=== PATIENT | female | born 1975 | race Caucasian/White ===

== ENCOUNTER → 2017-10-17 16:00 | Outpatient (REF) | payer OTHER, SELFPAY ==
--- NOTE | 2017-10-17 15:00 | PAPFT_PTH ---
PATIENT: Ana Brown LOC: [facility] U#:[id number] AGE/SX: 49/F ROOM: RE10/17/[address]: MAGED Womack : 1975 BED: DIS: SPEC #: [id number] RECD: 10/17/17 18:07 STATUS: ALTHEA CHOI #: [id number] BUSHRA: 10/17/17 15:[address]: Claritza Blackwell DEPT: [facility] [place] Cytology RECD BY: Cecelia Muhammad ENTERED: 10/17/17 18:07 SP TYPE: PAPFT OTHR DR: Korina Jaeger APRN Tissues: 1 - CX/ENDOCX FOR PAP SMEARS Procedures: PAP THIN PREP/[facility] Screening Comments: [id number]
== END ==
LOC: LBN 16:00
PROVIDERS: Visit Provider Nurse Practitioner Family
DX: Z12.4 Encounter for screening for malignant neoplasm of cervix (principal)
CPT/HCPCS: 88142

== ENCOUNTER → 2017-10-23 02:05 | Outpatient (CLI) | payer OTHER, SELFPAY | DX: E03.9 Hypothyroidism, unspecified (principal) | CPT/HCPCS: 36415; 84443 ==

== ENCOUNTER → 2017-10-29 01:54 | Outpatient (CLI) | payer OTHER, SELFPAY ==
--- NOTE | 2017-10-29 12:36 | DI.REPORT_ITS ---
SYMPTOM/DIAGNOSIS: PERSIST LLQ PAIN, S/P HYST, R10.32 PELVIC ULTRASOUND: Comparison is made with CT of the abdomen and pelvis dated 03/21/15. Transabdominal and transvaginal exams were performed. The patient is status post hysterectomy. A vaginal cuff versus cervical stump is seen. No mass is identified. The right ovary is unremarkable. There are two small cysts on the left ovary measuring 9 mm. in size. There is a trace amount of free fluid adjacent to the left ovary. The kidneys are unremarkable. IMPRESSION: Status post hysterectomy. Two small left ovarian cysts.
== END ==
PROVIDERS: Visit Provider Nurse Practitioner Family
DX: R10.32 Left lower quadrant pain (principal); N83.292 Other ovarian cyst, left side; Z90.710 Acquired absence of both cervix and uterus
CPT/HCPCS: 76830; 76856

== ENCOUNTER 2018-02-20 01:31 | Outpatient (CLI) | payer OTHER, SELFPAY ==
--- NOTE | 2018-02-20 11:26 | DI.US_ITS ---
SYMPTOMS/DIAGNOSIS: INGUINAL PAIN, S/P HYSTERECTOMY AND LYMPHADENOPATHY FOR CERVICAL CA, ? HERNIA/LYMPHADENOPATHY/SCAR TISSUE, R10.32, G89.29 LEFT INGUINAL ULTRASOUND: Routine examination was performed. There is no evidence of a left inguinal hernia sonographically. There are lymph nodes seen in the left inguinal region. They are ovoid with a hypoechoic periphery and a vascular hyperechoic central region consistent with benign lymph nodes sonographically. The largest measures 4.6 x 0.9 x 1.7 cm. IMPRESSION: Negative left inguinal ultrasound. No sonographic evidence of a hernia.
== END 2018-02-20 01:51 ==
PROVIDERS: Visit Provider Surgery
DX: R10.32 Left lower quadrant pain (principal); R59.0 Localized enlarged lymph nodes; Z98.890 Other specified postprocedural states
CPT/HCPCS: 76857

== ENCOUNTER 2018-03-18 08:57 | Day surgery (SDC) | payer OTHER, SELFPAY ==
[2018-03-18 09:09] VITALS: BP 123/65; PULSE 62; RESP 16; TEMP 36.6; O2SAT 99
--- NOTE | 2018-03-18 09:13 | W.PM.HP.N ---
Assessment and Plan (1) Adenocarcinoma in situ of cervix: Current visit: No Status: Acute (2) Lymphadenopathy, inguinal: Current visit: Yes Status: Acute A\\ left sided inguinal lymphadenopathy. Benign on US criteria. Has a hx of cervical cancer and is s/p hysterectomy and oopherectomy as well as a lymph node excision Discussed options of waiting and repeating the US in 6 months vs doing an open biopsy. Patient would like to proceed with biopsy P\\ Open Left inguinal lymph node biopsy under local Risks, benefits and complications were reviewed with the patient. Complications include but are not limited to bleeding, pain, infection, wound dehisence. Questions were entertained and answered to their satisfaction and they wished to proceed. No guarantees were given or implied. History of Present Illness Narrative: Mrs. Brown is a pleasant 42 year old female who in 2004 underwent a hysterectomy. She was found to have invasive cervical cancer and underwent another surgery 1 week later for lymphadenectomy. She also had radiation and chemotherapy. Shortly after that she started having some dull pain in the inguinal area. She describes it as dull. It is more pronounced at night. It is located mostly on her anterior thigh. Her last CT scan was in 2016 and was unremarkable. She recently had another vaginal US which was also unremarkable. She also complains of painful sex which is new and some spotting after sex. No weight loss. No rectal bleeding. No changes in bowel habits. PCP thought he felt a hernia. US revealed some enlarged but benign appearing lymph nodes. 6 months follow up was recomended. Patient was anxious about not knowing exactly why the lymph nodes were enlarged. Given her PMHx I felt it was reasonable to do a biopsy. Review of Systems Constitutional Denies fever(s) Cardiovascular Denies chest pain, Denies rapid heart rate, Denies irregular heart rhythm, Denies dyspnea and Denies dyspnea on exertion Respiratory Denies cough, Denies dyspnea and Denies dyspnea on exertion [facility] Medical History Insomnia (Acute 03/24/15) Hypothyroidism (Acute) Hyperlipidemia (Acute) Heart murmur (Acute) Headache (Acute) Generalized anxiety disorder (Acute 03/24/15) Adenocarcinoma in situ of cervix (Acute) Surgical History Vaginal hysterectomy (~2004) Family History Mother Essential hypertension Hyperlipidemia Stroke Father Diabetes Heart disease Neoplasm Sister Essential hypertension Neoplasm Brother Essential hypertension Hyperlipidemia Grandfather Essential hypertension Grandfather No problems noted. Grandmother No problems noted. Grandmother Diabetes Neoplasm Son No problems noted. Daughter No problems noted. Daughter Asthma Social History household members: family number of children: 3 Smoking/Tobacco Use Status: Never alcohol intake: current alcohol intake frequency: holidays/special occasions only substance use type: does not use Meds Home Medications Medication Instructions Recorded Confirmed Type levothyroxine 75 mcg PO DAILY #90 tab-cap 10/16/17 03/18/18 Rx sertraline 50 mg PO DAILY #90 tab-cap 11/07/17 03/18/18 Rx Allergies Allergy/AdvReac Type Severity Reaction Status Date / Time No Known Allergies Allergy Unverified 03/18/18 09:07 Exam Resp Effort & Inspection: normal respiratory effort Auscultation: clear to auscultation bilaterally Cardio Rate: regular rate Rhythm: regular rhythm Heart Sounds: no gallops, no murmurs and no rubs Extrem Other: Left inguinal area with palpable lymphadenopathy
[2018-03-18] MEDS: Lactated Ringers 1,000 ML 80 ML IV (09:31)
[2018-03-18] MEDS: Lidocaine 2% Multi-Dose 50 ML VIAL (11:08)
--- NOTE | 2018-03-18 11:08 | LYM_PTH ---
PATIENT: Ana Brown LOC: [facility] U#:[id number] AGE/SX: 42/F ROOM: RE03/18/[address]: Radha Castillo MD : 1975 BED: DIS: 03/18/2018 SPEC #: [id number] RECD: 03/18/18 12:55 STATUS: ALTHEA REQ #: [id number] BUSHRA: 03/18/18 11:[address]: Radha Castillo DEPT: Surgical Specimen RECD BY: Cecelia Muhammad ENTERED: 03/18/18 12:56 SP TYPE: LYM OTHR DR: Korina Jaeger APRN Tissues: 1 - LYMPH NODE BIOPSY Procedures: GROSS AND MICRO LEVEL 4 IMMUNOPEROXIDASE STAIN SPECIAL STAIN 1 Comments: [id number]
--- NOTE | 2018-03-18 11:22 | W.PM.OP ---
Date of service: 03/18/18 Time of Service: 11:22 Operative Note DATE OF PROCEDURE: 03/18/18 PRE-OP DIAGNOSIS: Left inguinal lymphadenopathy/hx of cervical CA POST-OP DIAGNOSIS: same PROCEDURE: Excisional bx of left inguinal lymph node SURGEON: Radha Castillo ANESTHESIA: regional (2% Lidocainemixed with .5% Marcaine with epi-18 cc) ESTIMATED BLOOD LOSS: 3 PATHOLOGY: other (lymph node) COMPLICATIONS: None Patient was transported to: same day Patient's condition: stable Indications: Mrs. Brown is a pleasant 42-year-old female with a past history of cervical cancer who noted swelling in her left inguinal area. It is tender. She thought it was a hernia at first. Ultrasound showed enlarged lymph nodes. There was benign appearance of the lymph nodes on ultrasound criteria. Repeat ultrasound in 6 months versus excisional biopsy was reviewed with the patient and she wanted to proceed with excisional biopsy due to her past history of cervical cancer. Risks, benefits, complications were reviewed with her and she wished to proceed. No guarantees were given or implied Findings: Matted and enlarged lymph nodes in the left inguinal area Procedure Description: After informed consent was obtained patient was taken to the procedure room placed in a supine position blood pressure was taken and a timeout was done. The patient's name, date of , procedure type and site, allergies to medications, and antibiotic given were all reviewed. Next the groin area was clipped and then prepped and draped in a sterile surgical fashion. The 2% lidocaine and Marcaine with epinephrine mixture was then injected on the previously marked site. Once the area was nice and numb an incision was made with a 15 blade. The dissection was taken down with cautery through the subcutaneous tissue until I was able to palpate the matted lymph nodes. The lymph node was dissected using cautery blunt dissection as well as sharp dissection. Once removed it was placed into formalin and sent to pathology. The wound was inspected for any bleeding none was identified. The subcutaneous tissue was then re-approximated using 3-0 Vicryl interrupted sutures. The dermis was closed using 4-0 Vicryl continuous suture. Skin affix was then applied. Sponge, instrument and needle counts were correct. Another blood pressure was done and the patient was then brought back to same day surgery in stable condition. She tolerated the procedure well.
--- NOTE | 2018-03-18 11:29 | W.PM.DSUDISC ---
Discharge Plan Disposition Patient Disposition: HOME Condition: Good Discharge Details Reason For Visit: lymph node bx Attending Provider: Radha Castillo Primary Care Provider: Korina Jaeger Home Meds and New Rx's Prescriptions: Continued levothyroxine 75 MCG tablet 75 mcg PO DAILY Qty: 90 RF: 4 sertraline 50 MG tablet 50 mg PO DAILY Qty: 90 RF: 2 Discharge Instructions Additional Instructions: Activity at Home after surgery: 1. Make sure you walk outside at least 4 times per day 2. You should be able to climb a flight of stairs 3. No driving while in pain or taking pain medications 4. No strenuous activity or heavy lifting for 1 week Diet, Nutrition, & wound healing: Eat a regular diet Pain Medications: 1. Alternate Tylenol 1000 mg and Ibuprofen 600 mg every 3 hours For Constipation: 1. Take Milk of Magnesia or MiraLax as needed for constipation Other: 1. You may shower daily. Do not scrub the incisions 2. Do not soak the incisions for 1 week 3. You may alternate ice and heat as needed for pain and swelling Wound Care: 1. Keep the incisions clean and dry Other Services that may have been ordered: None Please call our office if you develop: 1. Fevers >101.5 2. Nausea or Vomiting 3. Worsening pain 4. Redness and thick discharge from the wounds If after hours please call the Hospital at and ask to speak to the on-call surgeon Activity:: Activity as Tolerated Diet:: As Tolerated DS: Diagnosis Discharge Diagnosis (1) Adenocarcinoma in situ of cervix: Status: Acute (2) Lymphadenopathy, inguinal: Status: Acute
== END 2018-03-18 11:50 | disposition home or self-care (01) ==
PROVIDERS: Visit Provider Surgery
PROC: (CPT 38500; principal; 2018-03-18 11:00)
DX: R59.0 Localized enlarged lymph nodes (principal); Z85.41 Personal history of malignant neoplasm of cervix uteri
CPT/HCPCS: 38500; 88305; NC; 88312; 88361; J0690

== ENCOUNTER 2018-06-27 01:21 | Outpatient (CLI) | payer OTHER, SELFPAY ==
[2018-06-27 10:44] LABS: ALT 26 U/L (12-78); AST 17 U/L (15-37); Albumin 3.8 g/dL (3.4-5.0); Alkaline Phosphatase 73 U/L (46-116); BUN 14 mg/dL (7-18); Bilirubin, Total 0.3 mg/dL (0.2-1.0); CREATININE 0.73 mg/dL (0.55-1.02); Calcium 8.7 mg/dL (8.5-10.1); Chloride 102 mmol/L (98-107); Glucose 94 mg/dL (70-100); Sodium 139 mmol/L (136-145); TSH (W/Ref FT4) 0.69 uIU/mL (0.358-3.74); Total Protein 7.4 g/dL (6.4-8.2)
== END 2018-06-27 01:41 ==
DX: Z00.00 Encounter for general adult medical examination without abnormal findings (principal); E03.9 Hypothyroidism, unspecified; E01.1 Iodine-deficiency related multinodular (endemic) goiter; F41.1 Generalized anxiety disorder; G47.00 Insomnia, unspecified
CPT/HCPCS: 36415; 80053; 84443

== ENCOUNTER 2018-10-16 16:00 | Outpatient (REF) | payer OTHER, SELFPAY ==
--- NOTE | 2018-10-16 15:20 | PAPFT_PTH ---
PATIENT: Ana Brown LOC: [facility] U#:[id number] AGE/SX: 43/F ROOM: RE10/16/[address]: MAGED Womack : 1975 BED: DIS: 10/16/2018 SPEC #: [id number] RECD: 10/16/18 17:33 STATUS: ALTHEA RERuddy #: [id number] BUSHRA: 10/16/18 15:[address]: Claritza Blackwell DEPT: [facility] Cytology RECD BY: Cecelia Muhammad ENTERED: 10/16/18 17:34 SP TYPE: PAPFT BEATRIZ DR: Korina Jaeger APRN Tissues: 1 - CX/ENDOCX FOR PAP SMEARS Procedures: PAP THIN PREP/[facility] Screening Comments: [id number]
== END 2018-10-16 16:20 ==
LOC: LBN 16:00
PROVIDERS: Visit Provider Nurse Practitioner Family
DX: Z12.4 Encounter for screening for malignant neoplasm of cervix (principal)
CPT/HCPCS: 88142

== ENCOUNTER 2018-10-30 01:09 | Outpatient (CLI) | payer OTHER, SELFPAY ==
--- NOTE | 2018-10-30 12:00 | DI.MAMMO_ITS ---
SYMPTOMS/DIAGNOSIS: SCREENING, Z12.31 MAMMOGRAMS: Mammograms were interpreted according to the usual protocol including computer analysis with CAD system, tomosynthesis and C view imaging. Comparison is with the prior examinations. No suspicious masses or microcalcifications are seen. There is no definite evidence of malignancy. IMPRESSION: Negative mammogram. Routine screening is recommended. Category 1, breast density C. MQSA ASSESSMENT OF FINDINGS: Negative. Category 1. Patient will receive a letter notifying them of these results. Bi-RADS category C. The breasts are heterogeneously dense, which may obscure small masses.
== END 2018-10-30 01:29 ==
PROVIDERS: Visit Provider Nurse Practitioner Family
DX: Z12.31 Encounter for screening mammogram for malignant neoplasm of breast (principal)
CPT/HCPCS: 77063; 77067

== ENCOUNTER 2019-08-19 01:21 | Outpatient (CLI) | payer OTHER, SELFPAY ==
[2019-08-19 08:37] LABS: ALT 86 U/L (14-59); AST 61 U/L (15-37); Albumin 3.9 g/dL (3.4-5.0); Alkaline Phosphatase 83 U/L (46-116); Anion Gap 7.1 mmol/L (3-11); BUN 15 mg/dL (7-18); Bilirubin, Total 0.4 mg/dL (0.2-1.0); CO2 28.9 mmol/L (21.0-32.0); CREATININE 0.83 mg/dL (0.55-1.02); Calcium 8.4 mg/dL (8.5-10.1); Chloride 104 mmol/L (98-107); Glucose 105 mg/dL (74-106); Potassium 4.2 mmol/L (3.5-5.1); Sodium 140 mmol/L (136-145); Total Protein 7.4 g/dL (6.4-8.2)
== END 2019-08-19 01:41 ==
DX: E03.9 Hypothyroidism, unspecified (principal); F41.1 Generalized anxiety disorder; R59.0 Localized enlarged lymph nodes; Z00.00 Encounter for general adult medical examination without abnormal findings; G47.00 Insomnia, unspecified
CPT/HCPCS: 36415; 80053; 84443

== ENCOUNTER 2019-10-05 01:54 | Outpatient (CLI) | payer OTHER, SELFPAY ==
[2019-10-05 10:47] LABS: ALT 22 U/L (14-59); AST 18 U/L (15-37); Alkaline Phosphatase 83 U/L (46-116); Anion Gap 10.8 mmol/L (3-11); BUN 13 mg/dL (7-18); Bilirubin, Total 0.5 mg/dL (0.2-1.0); CO2 27.2 mmol/L (21.0-32.0); CREATININE 0.83 mg/dL (0.55-1.02); Calcium 9.1 mg/dL (8.5-10.1); Calculated LDL 169 mg/dL (<100); Chloride 103 mmol/L (98-107); Cholesterol 261 mg/dL (<200); Glucose 100 mg/dL (74-106); HDL Cholesterol 63 mg/dL (40-60); Potassium 4.1 mmol/L (3.5-5.1); Sodium 141 mmol/L (136-145); TSH (W/Ref FT4) 0.59 uIU/mL (0.36-3.74); Total Protein 7.4 g/dL (6.4-8.2); Triglyceride 145 mg/dL (<150)
[2019-10-05 10:56] LABS: Bilirubin, Direct 0.11 mg/dL (0.00-0.20)
[2019-10-06 17:16] LABS: Hepatitis C Ab w Rflx HCV PCR Negative (Negative)
== END 2019-10-05 02:14 ==
DX: E03.9 Hypothyroidism, unspecified (principal); E78.5 Hyperlipidemia, unspecified; F41.1 Generalized anxiety disorder; G47.00 Insomnia, unspecified; Z00.00 Encounter for general adult medical examination without abnormal findings; R94.5 Abnormal results of liver function studies; I10 Essential (primary) hypertension
CPT/HCPCS: 36415; 80053; 80061; 80076; 86803; 84443

== ENCOUNTER → 2019-10-19 13:46 | Outpatient (REF) | payer OTHER, SELFPAY ==
--- NOTE | 2019-10-19 13:40 | PAPFT_PTH ---
PATIENT: Ana Brown LOC: [facility] U#:[id number] AGE/SX: 49/F ROOM: RE10/19/[address]: MAGED Womack : 1975 BED: DIS: SPEC #: [id number] RECD: 10/19/19 18:28 STATUS: ALTHEA REQ #: [id number] BUSHRA: 10/19/19 13:[address]: Claritza Blackwell [facility] Cytology RECD BY: Cecelia Muhammad ENTERED: 10/19/19 18:28 SP TYPE: PAPFT OTHR DR: Kroina Jaeger APRN Tissues: 1 - CX/ENDOCX FOR PAP SMEARS Procedures: PAP THIN PREP/[facility] Screening Comments: [id number] (UNSATISFACTORY FOR EVALUATION)
== END ==
LOC: LBN 13:46
PROVIDERS: Visit Provider Nurse Practitioner Family
DX: Z12.4 Encounter for screening for malignant neoplasm of cervix (principal); R87.615 Unsatisfactory cytologic smear of cervix
CPT/HCPCS: 88142

== ENCOUNTER 2019-11-10 15:13 | Outpatient (REF) | payer OTHER, SELFPAY ==
--- NOTE | 2019-11-10 14:30 | PAPFT_PTH ---
PATIENT: Ana Brown LOC: [facility] U#:[id number] AGE/SX: 44/F ROOM: RE11/10/[address]: MAGED Womack : 1975 BED: DIS: 11/10/2019 SPEC #: [id number] RECD: 11/11/19 12:53 STATUS: ALTHEA RERuddy #: [id number] BUSHRA: 11/10/19 14:[address]: Claritza Blackwell DEPT: [facility] Cytology RECD BY: Irineo Chandra ENTERED: 11/11/19 12:54 SP TYPE: PAPFT OTHR DR: Korina Jaeger APRN Tissues: 1 - CX/ENDOCX FOR PAP SMEARS Procedures: PAP THIN PREP/[facility] Screening HPV DNA PROBE Comments: [id number]
== END 2019-11-10 15:33 ==
LOC: LBN 15:13
PROVIDERS: Visit Provider Nurse Practitioner Family
DX: Z12.4 Encounter for screening for malignant neoplasm of cervix (principal); Z11.51 Encounter for screening for human papillomavirus (HPV)
CPT/HCPCS: 88142; 87624

== ENCOUNTER 2020-01-27 01:54 | Outpatient (CLI) | payer OTHER, SELFPAY ==
[2020-01-27 09:50] LABS: TSH (W/Ref FT4) 0.64 uIU/mL (0.36-3.74)
== END 2020-01-27 02:14 ==
DX: E03.9 Hypothyroidism, unspecified (principal); G47.00 Insomnia, unspecified
CPT/HCPCS: 36415; 84443

== ENCOUNTER 2020-02-15 13:16 | Outpatient (CLI) | payer OTHER, SELFPAY ==
[2020-02-17 09:57] LABS: COVID-19 RT-PCR Result NEGATIVE (Negative)
== END 2020-02-15 13:36 ==
DX: Z20.828 Contact with and (suspected) exposure to other viral communicable diseases (principal)
CPT/HCPCS: U0003

== ENCOUNTER 2020-05-06 01:02 | Outpatient (CLI) | payer BC, SELFPAY ==
[2020-05-06 12:45] LABS: TSH (W/Ref FT4) 1.78 uIU/mL (0.36-3.74)
== END 2020-05-06 01:03 | disposition home or self-care (01) ==
LOC: LOS 01:02
DX: E03.9 Hypothyroidism, unspecified (principal); G47.00 Insomnia, unspecified
CPT/HCPCS: 36415; 84443

== ENCOUNTER 2020-07-11 17:51 | Outpatient (REF) | payer BC, SELFPAY ==
[2020-07-11 21:01] LABS: Abs Immature Grans 0.02 10^3/uL (0.0-0.06); Absolute Basophil Count 0.02 10^3/uL (0.0-0.2); Absolute Eosinophil Count 0.08 10^3/uL (0.0-0.7); Absolute Lymphocyte Count 1.85 10^3/uL (1.2-3.4); Absolute Monocyte Count 0.51 10^3/uL (0.1-0.8); Absolute Neutrophil Count 3.77 10^3/uL (1.2-6.7); Basophils % 0.3; Eosinophils % 1.3; HCT 39.6 % (36.0-46.0); HGB 13.1 g/dL (11.2-15.7); Immature Grans % 0.3; Lymphocytes % 29.6; MCH 28.4 pg (27.0-33.0); MCHC 33.1 % (32.0-36.0); MCV 85.7 fL (80-95); MPV 10.4 fL (8.0-11.0); Monocytes % 8.2; Neutrophils % 60.3; Nucleated RBC 0 %; Platelet Count 275 10^3/uL (130-400); RBC 4.62 10^6/uL (3.93-5.22); RDW 12.7 % (11.7-14.6); RDW-SD 39.6 fL; WBC 6.25 10^3/uL (4.4-10.8)
[2020-07-11 21:20] LABS: ALT 23 U/L (14-59); Albumin 3.9 g/dL (3.4-5.0); Alkaline Phosphatase 81 U/L (46-116); Anion Gap 9.4 mmol/L (3-11); BUN 11 mg/dL (7-18); Bilirubin, Total 0.3 mg/dL (0.2-1.0); CO2 29.6 mmol/L (21.0-32.0); CREATININE 0.8 mg/dL (0.55-1.02); Calcium 9.3 mg/dL (8.5-10.1); Chloride 105 mmol/L (98-107); Glucose 113 mg/dL (74-106); Potassium 3.7 mmol/L (3.5-5.1); Sodium 144 mmol/L (136-145); Total Protein 7.4 g/dL (6.4-8.2)
[2020-07-11 21:38] LABS: AST 14 U/L (15-37)
[2020-07-15 21:05] LABS: Tissue Transglutaminase Ab IgA <1.2 U/mL; Tissue Transglutaminase Ab IgG 3.2 U/mL
== END 2020-07-11 17:52 | disposition home or self-care (01) ==
LOC: LBN 17:51
PROVIDERS: Visit Provider Family Medicine
DX: R10.9 Unspecified abdominal pain (principal)
CPT/HCPCS: 80053; 83516; 85025

== ENCOUNTER 2020-07-13 10:33 | Outpatient (REF) | payer BC, SELFPAY ==
[2020-07-14 15:33] LABS: Helicobacter pylori Ag, Feces Negative (Negative)
== END 2020-07-13 10:34 | disposition home or self-care (01) ==
LOC: LBN 10:33
PROVIDERS: Visit Provider Family Medicine
DX: R10.9 Unspecified abdominal pain (principal)
CPT/HCPCS: 87338

== ENCOUNTER 2020-10-13 03:46 | Outpatient (CLI) | payer BC, SELFPAY ==
[2020-10-13 12:15] LABS: Calculated LDL 185 mg/dL (<100); Cholesterol 274 mg/dL (<200); HDL Cholesterol 61 mg/dL (40-60); TSH (W/Ref FT4) 1.38 uIU/mL (0.36-3.74); Triglyceride 144 mg/dL (<150)
== END 2020-10-13 03:47 | disposition home or self-care (01) ==
DX: E78.5 Hyperlipidemia, unspecified (principal); E03.9 Hypothyroidism, unspecified
CPT/HCPCS: 36415; 80061; 84443

== ENCOUNTER 2020-10-21 11:15 | Outpatient (REF) | payer BC, SELFPAY ==
--- NOTE | 2020-10-21 10:30 | PAPFT_PTH ---
PATIENT: Ana Brown LOC: [facility] U#:[id number] AGE/SX: 45/F ROOM: RE10/21/[address]: MAGED Womack : 1975 BED: DIS: 10/21/2020 SPEC #: [id number] RECD: 10/21/20 13:08 STATUS: ALTHEA REQ #: [id number] BUSHRA: 10/21/20 10:[address]: Claritza Blackwell DEPT: [facility] Cytology RECD BY: Cecelia Muhammad ENTERED: 10/21/20 13:08 SP TYPE: PAPFT OTHR DR: Korina Jaeger APRN Tissues: 1 - CX/ENDOCX FOR PAP SMEARS Procedures: PAP THIN PREP/[facility] Screening HPV DNA PROBE Comments: [id number]
== END 2020-10-21 11:16 | disposition home or self-care (01) ==
LOC: LBN 11:15
PROVIDERS: Visit Provider Nurse Practitioner Family
DX: Z12.72 Encounter for screening for malignant neoplasm of vagina (principal); Z85.41 Personal history of malignant neoplasm of cervix uteri; Z11.51 Encounter for screening for human papillomavirus (HPV); Z90.710 Acquired absence of both cervix and uterus
CPT/HCPCS: 88142; 87624

== ENCOUNTER 2020-10-31 01:38 | Outpatient (CLI) | payer BC, SELFPAY ==
--- NOTE | 2020-10-31 09:00 | DI.MAMMO_ITS ---
Exam(s) MAMMO SCREENING EXAM: MAMMO SCREENING CLINICAL HISTORY: screening. TECHNIQUE: Bilateral full field digital CC and MLO mammographic images were obtained with 3D tomosyn thesis and utilizing computer aided detection (CAD). COMPARISON: Prior mammograms dating back to 2013, the most recent being October 2018. FINDINGS: Fibroglandular tissue pattern is moderately dense, this decreasing sensitivity mammogram for finding hidden underlying lesions. In the left breast on 3D imaging there is a suggestion of asymmetric density-nodule measuring 6 x 5 m illimeters located approximately 3.5 cm in from the nipple on the CC view. In the opposite-right breast there is a round noncalcified well-defined 3-4 millimeter nodule located posteriorly in the medial aspect of the breast approximately 7 cm in from the nipple, as best seen o n 3D cc images. No malignant-appearing microcalcification groups in these regions or elsewhere in either breast. No new architectural distortion or skin thickening-retraction. IMPRESSION: Bilateral nodules. Spot compression views both breasts recommended as well as bilateral breast ultra sound. BI-RADS Category 0 - Assessment Incomplete: Need additional imaging evaluation Breast Density - Category C - Heterogeneously dense Breast density Category C or D implies that the patient has dense breast tissue. Dense breast tissue can make it harder to find cancer on a mammogram. Dense breast tissue is also associated with an incr eased risk of breast cancer. This information about the result of the mammogram report was provided to the patient to raise their awareness. Use this report when you speak with the patient about their risks for breast cancer, which includes their family history. At that time, you may recommend additional screening tests (Ultrasoun d or MRI) as these tests may add significant information. A negative radiographic report should not delay biopsy if a dominant or clinically suspicious mass is present. Up to ten percent of cancers are not identified on mammography. A negative report may reinforce clinical impression. Adenosis and dense breasts may obscure an underlying neoplasm. False positive reports average 6 to 10%. Patient will receive a letter notifying them of these results.
== END 2020-10-31 01:58 ==
PROVIDERS: Visit Provider Nurse Practitioner Family
DX: Z12.31 Encounter for screening mammogram for malignant neoplasm of breast (principal); R92.8 Other abnormal and inconclusive findings on diagnostic imaging of breast; N63.10 Unspecified lump in the right breast, unspecified quadrant; N63.20 Unspecified lump in the left breast, unspecified quadrant; R92.2 Inconclusive mammogram
CPT/HCPCS: 77063; 77067

== ENCOUNTER 2020-11-23 01:50 | Outpatient (CLI) | payer BC, SELFPAY ==
--- NOTE | 2020-11-23 10:20 | DI.MAMMO_ITS ---
Exam(s) US BREAST RT LIMITED US BREAST LT LIMITED MG MAMMO SCREEN CALL BACK BI EXAM: MG MAMMO SCREEN CALL BACK BI bilateral breast limited ultrasound CLINICAL HISTORY: F/U MAMMO, ASYMMETRIC DENSITY NODULE LT, NODULE RT. TECHNIQUE: Craniocaudal and mediolateral oblique Full Field Digital Mammography views of the bilater al breast with Computer Aided Diagnosis followed by Tomosynthesis and bilateral breast ultrasound. COMPARISON: Priors available for comparison. FINDINGS: Mammography/Tomosynthesis: Masses/Architectural Distortion: Additional views of the left breast confirm a well-circumscribed 7 m m nodule at the 12 o'clock position of the left breast approximately 3 cm from the nipple. Additiona l views of the right breast confirm a 3-4 mm nodule in the medial right breast approximately 7 cm fro m the nipple. Microcalcifictions: No suspicious pleomorphic-type are seen. Skin Thickening/Nipple Retraction: None. Bilateral limited breast US: Echotexture: Normal appearance of the glandular tissue. Shadowing: No suspicious foci. Cyst: In the left breast, there is a 0.7 cm simple cyst at the 12 o'clock position which would appear to correspond to the mammographic abnormality. In the right breast, several simple cysts are presen t in the medial half of the breast. There are multiple cysts seen at the 3 o'clock position of the r ight breast 7 cm from the nipple. This would correspond to the mammographic abnormality. Solid lesions: None seen. Ductal dilation: None. IMPRESSION: 1. No evidence of malignancy is noted. 2. Unless there is more urgent need, follow-up screening mammography is recommended, as per [place] [employer] guidelines. 3. The findings were discussed with the patient on the date of the examination. BI-RADS Category 2 - Benign Findings Breast Density - Category C - Heterogeneously dense Breast density Category C or D implies that the patient has dense breast tissue. Dense breast tissue can make it harder to find cancer on a mammogram. Dense breast tissue is also associated with an incr eased risk of breast cancer. This information about the result of the mammogram report was provided to the patient to raise their awareness. Use this report when you speak with the patient about their risks for breast cancer, which includes their family history. At that time, you may recommend additional screening tests (Ultrasoun d or MRI) as these tests may add significant information. A negative radiographic report should not delay biopsy if a dominant or clinically suspicious mass is present. Up to ten percent of cancers are not identified on mammography. A negative report may reinforce clinical impression. Adenosis and dense breasts may obscure an underlying neoplasm. False positive reports average 6 to 10%. Patient will receive a letter notifying them of these results.
== END 2020-11-23 02:10 ==
LOC: DI 01:50
PROVIDERS: Visit Provider Nurse Practitioner Family
DX: R92.8 Other abnormal and inconclusive findings on diagnostic imaging of breast (principal); N63.25 Unspecified lump in the left breast, overlapping quadrants; N63.15 Unspecified lump in the right breast, overlapping quadrants
CPT/HCPCS: 76642; 77063; 77067

== ENCOUNTER 2021-03-27 02:11 | Outpatient (CLI) | payer BC, SELFPAY ==
[2021-03-27 08:48] LABS: ALT 22 U/L (14-59); AST 19 U/L (15-37); Alkaline Phosphatase 75 U/L (46-116); Amylase 50 U/L (25-115); Anion Gap 10.1 mmol/L (3-11); BUN 14 mg/dL (7-18); Bilirubin, Total 0.4 mg/dL (0.2-1.0); CO2 25.9 mmol/L (21.0-32.0); CREATININE 0.8 mg/dL (0.55-1.02); Calcium 8.8 mg/dL (8.5-10.1); Chloride 103 mmol/L (98-107); Glucose 104 mg/dL (74-106); Lipase 237 U/L (73-393); Potassium 4.2 mmol/L (3.5-5.1); Sodium 139 mmol/L (136-145); TSH (W/Ref FT4) 1.69 uIU/mL (0.36-3.74); Total Protein 7.5 g/dL (6.4-8.2)
== END 2021-03-27 02:12 | disposition home or self-care (01) ==
LOC: LBO 02:11
DX: E03.9 Hypothyroidism, unspecified (principal); R10.812 Left upper quadrant abdominal tenderness; K21.9 Gastro-esophageal reflux disease without esophagitis
CPT/HCPCS: 36415; 80053; 83690; 82150; 84443

== ENCOUNTER 2021-04-12 01:44 | Outpatient (CLI) | payer BC, SELFPAY ==
--- NOTE | 2021-04-12 08:00 | DI.RAD_ITS ---
Exam(s) XR KNEE LT 4V AP,LAT,MICHAELA,PAT EXAM: XR KNEE LT 4V AP,LAT,MICHAELA,PAT CLINICAL HISTORY: Pain with kneeling, patella seems stuck,m25.562. TECHNIQUE: 2D digital imaging was performed. COMPARISON: No exams were available for comparison FINDINGS: BONES: No acute fracture is present. No bony destructive lesion is seen. No significant degenerative changes. JOINTS: The knee is normally aligned. No joint effusion is seen. The patellar view is suboptimal. The patellofemoral joint appears well maintained in the patella appears normally aligned. SOFT TISSUE: Normal. IMPRESSION: Normal radiographs of the left knee. DATA REPOSITORY: RADIATION DOSE DELIVERED:
== END 2021-04-12 02:04 ==
DX: M25.562 Pain in left knee (principal)
CPT/HCPCS: 73564

== ENCOUNTER 2021-10-03 03:50 | Outpatient (CLI) | payer BC, SELFPAY ==
[2021-10-03 12:58] LABS: Calculated LDL 161 mg/dL (<100); Cholesterol 241 mg/dL (<200); HDL Cholesterol 63 mg/dL (40-60); TSH 2.71 uIU/mL (0.36-3.74); Triglyceride 86 mg/dL (<150)
== END 2021-10-03 03:51 | disposition home or self-care (01) ==
LOC: LOS 03:50
DX: E78.5 Hyperlipidemia, unspecified (principal); E03.9 Hypothyroidism, unspecified
CPT/HCPCS: 36415; 80061; 84443

== ENCOUNTER 2021-10-11 22:06 | Outpatient (REF) | payer BC, SELFPAY ==
[2021-10-13 14:32] LABS: Varicella Zoster DNA Result Negative ((See Note))
== END 2021-10-11 22:07 | disposition home or self-care (01) ==
LOC: NCHCN 22:06
PROVIDERS: Visit Provider Nurse Practitioner Family
DX: H92.12 Otorrhea, left ear (principal); H93.8X2 Other specified disorders of left ear
CPT/HCPCS: 87798

== ENCOUNTER 2021-10-23 09:07 | Outpatient (REF) | payer BC, SELFPAY ==
--- NOTE | 2021-10-23 08:45 | PAPFT_PTH ---
PATIENT: Ana Brown LOC: [facility] U#:[id number] AGE/SX: 46/F ROOM: RE10/23/[address]: MAGED Womack : 1975 BED: DIS: 10/23/2021 SPEC #: [id number] RECD: 10/23/21 10:32 STATUS: ALTHEA REQ #: [id number] BUSHRA: 10/23/21 08:[address]: Claritza Blackwell DEPT: [facility] Cytology RECD BY: Alexia Sotelo ENTERED: 10/23/21 10:33 SP TYPE: PAPFT OTHR DR: Korina Jaeger APRN Tissues: 1 - CX/ENDOCX FOR PAP SMEARS Procedures: PAP THIN PREP/[facility] Screening HPV DNA PROBE Comments: [id number] (HPV 16 & 18/45)
== END 2021-10-23 09:08 | disposition home or self-care (01) ==
LOC: LBN 09:07
PROVIDERS: Visit Provider Nurse Practitioner Family
DX: Z12.72 Encounter for screening for malignant neoplasm of vagina (principal); Z11.51 Encounter for screening for human papillomavirus (HPV)
CPT/HCPCS: 88142; 87624

== ENCOUNTER → 2021-11-08 02:07 | Outpatient (CLI) | payer BC, SELFPAY ==
--- NOTE | 2021-11-08 07:30 | DI.MAMMO_ITS ---
Exam(s) MAMMO SCREENING EXAM: MAMMO SCREENING CLINICAL HISTORY: screening. TECHNIQUE: Bilateral full field digital CC and MLO mammographic images were obtained with 3D tomosyn thesis and utilizing computer aided detection (CAD). COMPARISON: Prior mammograms were reviewed, the most recent being October and November 2020. Ultras ound examinations of November 2020 were also reviewed.. FINDINGS: There are no new findings in the left breast. In the medial aspect of the opposite-right breast on the CC 3D cc imaging 1 of the nodular densities has slightly increased in size.. This is located posteromedially, 7 cm in from the nipple on the 3D cc image. There are no new spiculated masses nor malignant appearing microcalcification groups. There is no significant architectural distortion nor skin thickening-retraction. IMPRESSION: 1. No radiographic evidence of malignancy in left breast. 2. Right breast nodular density medially which has slightly increased in size from prior study. Nikc mmend repeat spot compression view and complete right breast ultrasound. BI-RADS Category 0 - Assessment Incomplete: Need additional imaging evaluation Breast Density - Category C - Heterogeneously dense Breast density Category C or D implies that the patient has dense breast tissue. Dense breast tissue can make it harder to find cancer on a mammogram. Dense breast tissue is also associated with an incr eased risk of breast cancer. This information about the result of the mammogram report was provided to the patient to raise their awareness. Use this report when you speak with the patient about their risks for breast cancer, which includes their family history. At that time, you may recommend additional screening tests (Ultrasoun d or MRI) as these tests may add significant information. A negative radiographic report should not delay biopsy if a dominant or clinically suspicious mass is present. Up to ten percent of cancers are not identified on mammography. A negative report may reinforce clinical impression. Adenosis and dense breasts may obscure an underlying neoplasm. False positive reports average 6 to 10%. Patient will receive a letter notifying them of these results.
== END ==
PROVIDERS: PCP Nurse Practitioner Family; Visit Provider Nurse Practitioner Family
DX: Z12.31 Encounter for screening mammogram for malignant neoplasm of breast (principal); R92.8 Other abnormal and inconclusive findings on diagnostic imaging of breast
CPT/HCPCS: 77063; 77067

== ENCOUNTER → 2021-11-14 01:13 | Outpatient (CLI) | payer BC, SELFPAY ==
--- NOTE | 2021-11-14 | DI.US_ITS ---
Exam(s) MG MAMMO SCREEN CALL BACK UNI US BREAST RT LIMITED EXAM: MG MAMMO SCREEN CALL BACK UNI and U/S breast RT limited CLINICAL HISTORY: F/U MAMMO, RT NODULAR DENSITIES INCREASED IN SIZE. TECHNIQUE: Craniocaudal and mediolateral oblique Full Field Digital Mammography views of the right b reast with Computer Aided Diagnosis followed by Tomosynthesis and right breast ultrasound. COMPARISON: Comparison is made with prior examinations. FINDINGS: Mammography/Tomosynthesis: Masses/Architectural Distortion: Additional views show small round nodule in the medial right breast. Microcalcifictions: No suspicious pleomorphic-type are seen. Skin Thickening/Nipple Retraction: None. Limited right breast US: Echotexture: Normal appearance of the glandular tissue. Shadowing: No suspicious foci. Cyst: Several clusters of cysts are seen in the right breast. 2 cysts are seen at the 1 o'clock posi tion of the right breast 4 cm from the nipple. The larger measures 0.8 cm in maximum diameter. Ther e are 2 simple cysts seen at the 3 o'clock position of the right breast 4-5 cm from the nipple. The largest measures 0.6 cm. There are 3 simple cysts seen at the 6 o'clock position of the right breast 4-5 cm from the nipple. The largest measures 0.8 cm. Solid lesions: None seen. Ductal dilation: None. IMPRESSION: 1. No evidence of malignancy is noted. 2. Unless there is more urgent need, follow-up screening mammography is recommended, as per [employer] [place] guidelines. 3. The findings were discussed with the patient on the date of the examination. BI-RADS Category 2 - Benign Findings Breast Density - Category C - Heterogeneously dense Breast density Category C or D implies that the patient has dense breast tissue. Dense breast tissue can make it harder to find cancer on a mammogram. Dense breast tissue is also associated with an incr eased risk of breast cancer. This information about the result of the mammogram report was provided to the patient to raise their awareness. Use this report when you speak with the patient about their risks for breast cancer, which includes their family history. At that time, you may recommend additional screening tests (Ultrasoun d or MRI) as these tests may add significant information. A negative radiographic report should not delay biopsy if a dominant or clinically suspicious mass is present. Up to ten percent of cancers are not identified on mammography. A negative report may reinforce clinical impression. Adenosis and dense breasts may obscure an underlying neoplasm. False positive reports average 6 to 10%. Patient will receive a letter notifying them of these results.
== END ==
PROVIDERS: PCP Nurse Practitioner Family; Visit Provider Nurse Practitioner Family
DX: Z12.31 Encounter for screening mammogram for malignant neoplasm of breast (principal); R92.8 Other abnormal and inconclusive findings on diagnostic imaging of breast
CPT/HCPCS: 76642; 77063; 77067

== ENCOUNTER → 2022-01-19 00:13 | Outpatient (CLI) | payer BC, SELFPAY ==
--- NOTE | 2022-01-19 08:30 | DI.CT_ITS ---
Exam(s) CT ABDOMEN PELVIS W EXAM: CT ABDOMEN PELVIS W CLINICAL HISTORY: chronic LUQ pain, R10.12, G89.29. TECHNIQUE: Imaging Protocol: Axial computed tomography images with coronal and sagittal reformatted images were created and reviewed CONTRAST MATERIAL: Intravenous: Omnipaque 100cc Oral: Yes. Oral contrast was administered for bowel opacification. COMPARISON: CT ABD PELVIS WITH CONTRAST from 03/21/2015 FINDINGS: VISUALIZED LUNG BASES: On the 1st uppermost image of this study there is a partially included right l vika nodule measuring 3 millimeters, noncalcified. No other nodules in the visualized lung bases and no infiltrates nor pleural effusions.. ABDOMEN: There is no ascites. LIVER: There are no focal hepatic lesions evident . GALLBLADDER/BILIARY: No obvious gallbladder pathology. CBD is not dilated. PANCREAS: No evidence of pancreatic mass nor dilatation of the pancreatic duct. SPLEEN: Spleen is not enlarged. No obvious intrasplenic lesions. Splenic and portal veins are paten t. ADRENALS: There are no significant adrenal masses. KIDNEYS:No cysts evident. No solid renal masses. No calculi nor hydronephrosis.. ABDOMINAL AORTA: Abdominal aorta is not enlarged. LYMPH NODES:There is no retroperitoneal nor paraaortic adenopathy. ABDOMINAL WALL: No evidence of significant anterior abdominal wall nor inguinal hernia. GI: There is no evidence of bowel obstruction, free air, nor abscess. PELVIS: GI: No evidence of appendicitis.No evidence of sigmoid diverticulitis. LYMPH NODES: There is no intrapelvic nor inguinal adenopathy. REPRODUCTIVE: The uterus is again noted to be surgically absent. There is a cyst in the left ovary a gain noted, presently measuring 2.2 by 1.5 cm, spine slightly smaller than previous. No cysts seen i n the opposite-right ovary on the present study. The previously present cyst in the right ovary has resolved. There is a small calcification in the right ovary, slightly larger than previous and prese ntly measuring 4 millimeters. There are no extraovarian adnexal masses and no free fluid in the depe ndent aspect of the pelvis. URINARY BLADDER: No calculi nor obvious masses evident OSSEOUS: Benign bone island in the left femoral head is unchanged from 2016. There are no lytic nor blastic osseous lesions. No fractures. No disc space narrowing nor listhesis. IMPRESSION: 1. Compared to the prior CT scan 2016 the uterus is again noted to be surgically absent. Previously present cysts in the right ovary are no longer seen. Cyst in left ovary is decreased in size with pr esent measurement as above. There are no extraovarian adnexal masses and no free fluid in the pelvis . No intrapelvic adenopathy. 2. No other findings in the abdomen pelvis. 3. Incidentally noted on the uppermost image of this abdominal study is a partially included small no dule in the right lung which measures 3 millimeters. RADIATION DOSE DELIVERED: 770.57mGy.cm Total DLP DATA REPOSITORY: All CT scans at this facility are submitted to the National Radiology Data Registry (NRDR) Dose Index Registry (DIR) with the [employer] (ACR). RADIATION OPTIMIZATION: All CT scans at this facility use at least one of these dose optimization te chniques: automated exposure control; mA and/or kV adjustment per patient size (includes targeted exa ms where dose is matched to clinical indication); or iterative reconstruction.
[2022-01-19] MEDS: Normal Saline - Diluent 50 ML VIAL IJ (15:56)
[2022-01-19] MEDS: Omnipaque 350 MG/ML 100 ML BTL IJ (15:56)
[2022-01-19] MEDS: Normal Saline Flush 10 ML SYR IVP (15:57)
== END ==
PROVIDERS: PCP Nurse Practitioner Family; Visit Provider Nurse Practitioner Family
DX: G89.29 Other chronic pain (principal); R10.12 Left upper quadrant pain
CPT/HCPCS: 74177; J3490

== ENCOUNTER 2022-07-31 02:46 | Outpatient (CLI) | payer BC, SELFPAY ==
[2022-07-31 09:16] LABS: Kit/Specimen SENT
== END 2022-07-31 02:47 | disposition home or self-care (01) ==
LOC: LBO 02:46
PROVIDERS: PCP Nurse Practitioner Family; Visit Provider Chiropractor Neurology
DX: R11.0 Nausea (principal); K30 Functional dyspepsia
CPT/HCPCS: 36415

== ENCOUNTER 2022-08-20 04:53 | Outpatient (CLI) | payer BC, SELFPAY ==
[2022-08-20 09:48] LABS: Kit/Specimen SENT
== END 2022-08-20 04:54 | disposition home or self-care (01) ==
LOC: LBO 04:53
PROVIDERS: PCP Nurse Practitioner Family; Visit Provider Chiropractor Neurology
DX: E03.9 Hypothyroidism, unspecified (principal)
CPT/HCPCS: 36415

== ENCOUNTER 2022-08-27 14:38 | Outpatient (REF) | payer BC, SELFPAY | END 2022-08-27 14:39 | disposition home or self-care (01) | LOC: LBN 14:38 | PROVIDERS: PCP Nurse Practitioner Family; Visit Provider Nurse Practitioner Family | DX: H92.01 Otalgia, right ear (principal) | CPT/HCPCS: 87077; 87070; 87186; 87205 ==

== ENCOUNTER 2022-10-26 02:29 | Outpatient (CLI) | payer BC, SELFPAY ==
[2022-10-26 11:05] LABS: Anion Gap 8.8 mmol/L (3-11); BUN 13 mg/dL (7-18); CO2 28.2 mmol/L (21.0-32.0); CREATININE 0.8 mg/dL (0.55-1.02); Calculated LDL 142 mg/dL (<100); Chloride 108 mmol/L (98-107); Cholesterol 222 mg/dL (<200); Estimated GFR 90.27 (mL/min/1.73m2); Glucose 105 mg/dL (74-106); HDL Cholesterol 61 mg/dL (40-60); Potassium 4.1 mmol/L (3.5-5.1); Sodium 145 mmol/L (136-145); TSH (W/Ref FT4) 0.63 uIU/mL (0.36-3.74); Triglyceride 97 mg/dL (<150)
[2022-10-26 11:12] LABS: Hemoglobin A1C 5.6 % (<5.7)
== END 2022-10-26 02:30 | disposition home or self-care (01) ==
LOC: LOS 02:29
PROVIDERS: PCP Nurse Practitioner Family; Visit Provider Nurse Practitioner Family
DX: Z00.00 Encounter for general adult medical examination without abnormal findings (principal); E78.5 Hyperlipidemia, unspecified; E03.9 Hypothyroidism, unspecified; F41.1 Generalized anxiety disorder; Z13.1 Encounter for screening for diabetes mellitus
CPT/HCPCS: 36415; 80048; 80061; 83036; 84443

== ENCOUNTER → 2022-11-14 02:57 | Outpatient (CLI) | payer BC, SELFPAY ==
--- NOTE | 2022-11-14 06:30 | DI.MAMMO_ITS ---
Exam(s) MAMMO SCREENING EXAM: MAMMO SCREENING CLINICAL HISTORY: screening,z12.39 TECHNIQUE: Mammograms were interpreted according to the usual protocol including computer analysis w [employer] CAD system, tomosynthesis and C-view imaging. COMPARISON: 2013 through 2021 FINDINGS: The breasts are composed of heterogeneously dense fibroglandular densities, Breast Density category C . No suspicious masses or suspicious microcalcifications are seen.. Previously noted area of nodularity in the medial right breast no longer seen. No skin thickening or abnormal axillary lymph nodes are seen. There has been no significant change from prior exams. IMPRESSION: BI-RADS Category 1, Negative mammogram. Yearly screening mammography is recommended. Breast Density Category C, heterogeneously Dense. The mammogram demonstrates the patient's breast tissue is dense. Dense breast tissue is very common a nd is not abnormal but dense breast tissue can make it harder to find cancer on a mammogram. Also, de nse breast tissue may increase breast cancer risk. This information about the result of the mammogram report was provided to the patient to raise their awareness. Use this report when you speak with the patient about their risks for breast cancer, which includes their family history. At that time, you may recommend additional screening tests (Ultrasound or MRI) as they might be useful based on their r isk. A negative radiographic report should not delay biopsy if a dominant or clinically suspicious mass is present. Up to ten percent of cancers are not identified on mammography. A negative report may reinforce clinical impression. Adenosis and dense breasts may obscure an underlying neoplasm. False positive reports average 6 to 10%.
== END ==
PROVIDERS: PCP Nurse Practitioner Family; Visit Provider Nurse Practitioner Family
DX: Z12.31 Encounter for screening mammogram for malignant neoplasm of breast (principal)
CPT/HCPCS: 77063; 77067

== ENCOUNTER 2023-10-25 01:31 | Outpatient (CLI) | payer BC, SELFPAY ==
[2023-10-25 13:44] LABS: Anion Gap 8.5 mmol/L (3-11); BUN 14 mg/dL (7-18); CO2 29.5 mmol/L (21.0-32.0); CREATININE 0.8 mg/dL (0.55-1.02); Calcium 9.1 mg/dL (8.5-10.1); Chloride 103 mmol/L (98-107); Estimated GFR 89.71 (mL/min/1.73m2); Glucose 93 mg/dL (74-106); Potassium 4.1 mmol/L (3.5-5.1); Sodium 141 mmol/L (136-145); TSH (W/Ref FT4) 1.79 uIU/mL (0.36-3.74)
[2023-10-27 12:54] LABS: HIV-1/2 Ag & Ab Screen Negative (Negative)
[2023-10-28 14:32] LABS: HBs Antibody, Quant 8.8 mIU/mL (See Note); Hep B Surface Ab Negative (See Note); Hepatitis B Core Antibody Negative (Negative); Hepatitis B Surface Antigen Negative (Negative)
== END 2023-10-25 01:32 | disposition home or self-care (01) ==
LOC: LOS 01:31
PROVIDERS: PCP Nurse Practitioner Family; Visit Provider Nurse Practitioner Family
DX: Z11.59 Encounter for screening for other viral diseases (principal); E03.9 Hypothyroidism, unspecified; Z11.4 Encounter for screening for human immunodeficiency virus [HIV]
CPT/HCPCS: 36415; 80048; 86704; 86706; 87340; 87389; 84443

== ENCOUNTER 2023-12-10 02:09 | Outpatient (CLI) | payer BC, SELFPAY ==
--- NOTE | 2023-12-10 06:30 | DI.MAMMO_ITS ---
Exam(s) MAMMO SCREENING EXAM: MAMMO SCREENING CLINICAL HISTORY: screening,z12.39 TECHNIQUE: Mammograms were interpreted according to the usual protocol including computer analysis w [employer] CAD system, tomosynthesis and C-view imaging. COMPARISON: 2014 through 2022 FINDINGS: The breasts are composed of heterogeneously dense fibroglandular densities, Breast Density category C . No suspicious masses or suspicious microcalcifications are seen. Stable circumscribed nodules in the left breast. No skin thickening or abnormal axillary lymph nodes are seen. There has been no significant change from prior exams. IMPRESSION: BI-RADS Category 2 - Benign Findings Yearly screening mammography is recommended. Breast Density Category C, heterogeneously Dense. The mammogram demonstrates the patient's breast tissue is dense. Dense breast tissue is very common a nd is not abnormal but dense breast tissue can make it harder to find cancer on a mammogram. Also, de nse breast tissue may increase breast cancer risk. This information about the result of the mammogram report was provided to the patient to raise their awareness. Use this report when you speak with the patient about their risks for breast cancer, which includes their family history. At that time, you may recommend additional screening tests (Ultrasound or MRI) as they might be useful based on their r isk. A negative radiographic report should not delay biopsy if a dominant or clinically suspicious mass is present. Up to ten percent of cancers are not identified on mammography. A negative report may reinforce clinical impression. Adenosis and dense breasts may obscure an underlying neoplasm. False positive reports average 6 to 10%.
== END 2023-12-10 02:29 ==
LOC: DI 02:09
PROVIDERS: PCP Nurse Practitioner Family; Visit Provider Nurse Practitioner Family
DX: Z12.31 Encounter for screening mammogram for malignant neoplasm of breast (principal)
CPT/HCPCS: 77063; 77067

== ENCOUNTER 2024-01-27 15:03 | Outpatient (REF) | payer BC, SELFPAY | END 2024-01-27 15:04 | disposition home or self-care (01) | LOC: LBN 15:03 | PROVIDERS: PCP Nurse Practitioner Family; Visit Provider Family Medicine | DX: J02.9 Acute pharyngitis, unspecified (principal) | CPT/HCPCS: 87070 ==

== ENCOUNTER 2024-03-30 03:22 | Outpatient (CLI) | payer BC, SELFPAY ==
[2024-03-30 12:48] LABS: ALT 21 U/L (14-59); AST 19 U/L (15-37); Alkaline Phosphatase 91 U/L (46-116); Bilirubin, Total 0.48 mg/dL (0.2-1.0); Calculated LDL 169 mg/dL (<100); Cholesterol 268 mg/dL (<200); HDL Cholesterol 73 mg/dL (40-60); Triglyceride 130 mg/dL (<150)
[2024-03-30 12:57] LABS: Bilirubin, Direct 0.1 mg/dL (0.0-0.2)
== END 2024-03-30 03:23 | disposition home or self-care (01) ==
LOC: LOS 03:22
PROVIDERS: PCP Nurse Practitioner Family; Visit Provider Family Medicine
DX: G72.89 Other specified myopathies (principal); E78.5 Hyperlipidemia, unspecified
CPT/HCPCS: 36415; 80061; 80076

== ENCOUNTER 2024-10-22 11:54 | Outpatient (CLI) | payer BC, SELFPAY ==
[2024-10-22 12:52] LABS: Anion Gap 8.9 mmol/L (3-11); BUN 13 mg/dL (7-18); CO2 30.1 mmol/L (21.0-32.0); Calcium 9.4 mg/dL (8.5-10.1); Chloride 105 mmol/L (98-107); Estimated GFR 89.15 (mL/min/1.73m2); Glucose 101 mg/dL (74-106); Potassium 3.8 mmol/L (3.5-5.1); Sodium 144 mmol/L (136-145); TSH (W/Ref FT4) 0.60 uIU/mL (0.36-3.74)
== END 2024-10-22 11:55 | disposition home or self-care (01) ==
LOC: LOS 11:55
PROVIDERS: PCP Nurse Practitioner Family; Visit Provider Nurse Practitioner Family
DX: E03.9 Hypothyroidism, unspecified (principal)
CPT/HCPCS: 36415; 80048; 84443

== ENCOUNTER 2024-12-10 04:25 | Outpatient (CLI) | payer OTHER, SELFPAY ==
--- NOTE | 2024-12-10 06:00 | DI.MAMMO_ITS ---
Exam(s) MAMMO SCREENING EXAM: MAMMO SCREENING CLINICAL HISTORY: screening,Z12.39. TECHNIQUE: Bilateral full field digital CC and MLO mammographic images were obtained with 3D tomosynthesis and utilizing computer aided detection (CAD). COMPARISON: Prior mammograms were reviewed. FINDINGS: LEFT BREAST: In the left breast on the 3D MLO view there is a lobulated noncalcified 8 millimeter nodule located 6 cm in from the nipple on the MLO view. On the CC view it is located medial of center. No associated microcalcifications. No architectural distortion. RIGHT BREAST: In the right breast there are 2 areas of asymmetric density seen on the CC view, 1 located lateral center 7 cm in from the nipple with a possible 9 x 7 mm nodule at this level. No microcalcifications. More medially in the right breast there is asymmetric density-possible nodule located 4 cm in from the nipple on the CC view. No associated microcalcifications. This area also requires additional imaging. In right breast on the mlo view there is suggestion of a noncalcified nodule measuring 1.3 x 0.8 cm located 6 cm in from the nipple. also requires further imaging. There are no malignant-appearing microcalcification groups in this region or elsewhere in either breast. IMPRESSION: Bilateral asymmetric densities-possible nodules. Bilateral spot compression views and bilateral complete breast ultrasound recommended. BI-RADS Category 0 - Incomplete: Need additional imaging evaluation Breast Density - Category C - The breast are heterogeneously dense, which may obscure small masses. Breast density Category C or D implies that the patient has dense breast tissue. Dense breast tissue can make it harder to find cancer on a mammogram. Dense breast tissue is also associated with an increased risk of breast cancer. This information about the result of the mammogram report was provided to the patient to raise their awareness. Use this report when you speak with the patient about their risks for breast cancer, which includes their family history. At that time, you may recommend additional screening tests (Ultrasound or MRI) as these tests may add significant information. A negative radiographic report should not delay biopsy if a dominant or clinically suspicious mass is present. Up to ten percent of cancers are not identified on mammography. A negative report may reinforce clinical impression. Adenosis and dense breasts may obscure an underlying neoplasm. False positive reports average 6 to 10%. Patient will receive a letter notifying them of these results.
== END 2024-12-10 04:45 ==
PROVIDERS: PCP Nurse Practitioner Family; Visit Provider Nurse Practitioner Family
DX: Z12.31 Encounter for screening mammogram for malignant neoplasm of breast (principal); R92.8 Other abnormal and inconclusive findings on diagnostic imaging of breast
CPT/HCPCS: 77063; 77067

== ENCOUNTER 2024-12-24 05:32 | Outpatient (CLI) | payer OTHER, SELFPAY ==
--- NOTE | 2024-12-24 09:20 | DI.US_ITS ---
Exam(s) US BREAST LT COMPLETE US BREAST RT COMPLETE MG MAMMO SCREEN CALL BACK BI EXAM: MG MAMMO SCREEN CALL BACK BI CLINICAL HISTORY: R92.8 Abn mammo bilat asymmetric densities-possible nodules. TECHNIQUE: Spot compression digital Mammography views of the bothbreasts with Tomosynthesis followed by bilateral breast ultrasound. COMPARISON: MG MG MAMMO SCREENING from 10/31/2020 MG MG MAMMO SCREEN CALL BACK BI from 11/23/2020 US US BREAST RT LIMITED from 11/23/2020 US US BREAST LT LIMITED from 11/23/2020 MG MG MAMMO SCREENING from 11/08/2021 MG MG MAMMO SCREEN CALL BACK UNI from 11/14/2021 US US BREAST RT LIMITED from 11/14/2021 MG MG MAMMO SCREENING from 11/14/2022 MG MG MAMMO SCREENING from 12/10/2023 MG MG MAMMO SCREENING from 12/10/2024 US US BREAST RT COMPLETE from 12/24/2024 FINDINGS: RIGHT BREAST: Mammography/Tomosynthesis: Masses: Persistent areas of nodularity. No suspicious masses. Architectural Distortion: None seen. Microcalcifictions: No suspicious pleomorphic-type are seen. Skin Thickening/Nipple Retraction: None. Right breast US: Echotexture: Normal appearance of the glandular tissue. Shadowing: No suspicious foci. Cyst: 7 x 4 x 8 millimeter cyst 12 o'clock position 3 cm from the nipple. 8 x 4 x 7 millimeter cyst 6 o'clock position 4 cm from the nipple. Other smaller cysts. Solid lesions: None seen. Ductal dilation: None. LEFT BREAST: Mammography/Tomosynthesis: Masses/Architectural Distortion: Persistent areas of nodularity. Microcalcifictions: No suspicious pleomorphic-type are seen. Skin Thickening/Nipple Retraction: None. Left breast ultrasound: Echotexture: Normal appearance of the glandular tissue. Shadowing: No suspicious foci. Cyst: 6 x 4 x 6 centimeter cluster of microcysts 5 o'clock position 3 cm from the nipple. 12 o'clock position 4 cm from the nipple 4 x 4 x 5 millimeter cyst. Other small cysts also seen. Solid lesions: None seen. Ductal dilation: None. IMPRESSION: 1. Right breast: No evidence of malignancy is noted. Multiple cysts. 2. Left breast: No evidence of malignancy is noted. Multiple cysts. 3. Unless there is more urgent need, follow-up screening mammography is recommended, as per [place] [employer] guidelines. 4. The findings were discussed with the patient on the date of the examination. BI-RADS Category 2 - Benign Findings Breast Density - Category B - There are scattered areas of fibroglandular density. Breast density Category C or D implies that the patient has dense breast tissue. Dense breast tissue can make it harder to find cancer on a mammogram. Dense breast tissue is also associated with an increased risk of breast cancer. This information about the result of the mammogram report was provided to the patient to raise their awareness. Use this report when you speak with the patient about their risks for breast cancer, which includes their family history. At that time, you may recommend additional screening tests (Ultrasound or MRI) as these tests may add significant information. A negative radiographic report should not delay biopsy if a dominant or clinically suspicious mass is present. Up to ten percent of cancers are not identified on mammography. A negative report may reinforce clinical impression. Adenosis and dense breasts may obscure an underlying neoplasm. False positive reports average 6 to 10%. Patient will receive a letter notifying them of these results.
== END 2024-12-24 05:52 ==
LOC: DI 05:32
PROVIDERS: PCP Nurse Practitioner Family; Visit Provider Nurse Practitioner Family
DX: Z12.31 Encounter for screening mammogram for malignant neoplasm of breast (principal); R92.8 Other abnormal and inconclusive findings on diagnostic imaging of breast
CPT/HCPCS: 76642; 77063; 77067